=== PATIENT | female | born 1950 | race Caucasian/White ===

== ENCOUNTER → 2017-12-17 | Outpatient (CLI) | payer OTHER, BC ==
[~2017-12-17] VITALS: Ht 162.6 cm; Wt 65.0 kg
[~2017-12-17] MED LIST: ATORVASTATIN CA20 MG PO; B-12500 MC1 SL; CALTRATE PLUS1 EACH PO; GLUCOSAMINE R1000 MG PO; LIALDA1.2 GM PO; MAGNESIUM OXID500 M1 PO; PRED MILD RIGHT EYE; PROPRANOLOL HCL40 MG PO; RESTASIS MULTI5.5 ML BOTH EYES; RETAINE HPMC 0.10 ML BOTH EYES; TOPAMAX50 MG PO; VALTREX50 MG/ML PO; VITAMIN D32000 UNI1 PO
[2017-12-17 10:18] VITALS: BP 130/77
== END | disposition home or self-care (01) ==
LOC: IVINF 12-11 15:00
DX: M85.80 Other specified disorders of bone density and structure, unspecified site (principal); Z87.19 Personal history of other diseases of the digestive system; Z88.1 Allergy status to other antibiotic agents
CPT/HCPCS: 96365; J3489